=== PATIENT | female | born 1950 | race Two or more races ===

== ENCOUNTER 2023-10-15 09:00 | Day surgery (SDC) | payer MEDICARE ==
[~2023-10-15 09:00] MED LIST: LACTATED RINGERS 1,000 ML BAG ONE
[2023-10-15] MEDS ORDERED: PROPOFOL 10 MG/ML 20 ML VIAL IV ONE (09:09)
--- NOTE | 2023-10-24 15:53 | PCN ---
PROCEDURE NOTE REQUESTING PHYSICIAN: Dr. Stark. BRIEF HISTORY: The patient is a 73-year-old, pleasant white female, scheduled for elective colonoscopy as a part of evaluation of screening for colorectal neoplasia. Her last colonoscopy was 10 years ago. PROCEDURE PERFORMED: Colonoscopy. PREOPERATIVE DIAGNOSIS: Screening for colon cancer. ANESTHESIA: IV sedation per Anesthesia. DESCRIPTION OF PROCEDURE: After informed consent was obtained from the patient, she was brought into the endoscopy unit. IV conscious sedation was administered by Anesthesia under continuous monitoring. Initial digital rectal examination was normal. The Olympus CF-190 video colonoscope was then inserted into the rectum, gradually advanced into the cecum. Careful examination was performed as the scope was gradually being withdrawn. The ileocecal valve and appendiceal orifice were visualized and appeared normal. The prep was excellent. Mucosa of the cecum, ascending colon, transverse colon, descending colon, sigmoid colon, and rectum appeared normal. There were scattered left-sided diverticuloses seen. In the rectum, retroflexion was performed, and grade 2 internal hemorrhoids were seen. The patient tolerated the procedure well. IMPRESSION: 1. Grade 2 internal hemorrhoids. 2. Scattered left-sided diverticuloses. RECOMMENDATIONS: Findings of this examination were discussed with the patient as well as the family. She was advised to be on a high-fiber diet, take fiber supplements on a regular basis, and avoid straining and constipation. Recommend a repeat colonoscopy in 10 years. MMODL / IJN: [id number] /
== END 2023-10-15 10:15 ==
LOC: ORWHC2ENDO 09:00
PROVIDERS: ATTEND Internal Medicine Gastroenterology
DX: K62.5 Hemorrhage of anus and rectum
CPT/HCPCS: 45378